=== PATIENT | female | born 1965 | race African-American/Black ===

== ENCOUNTER 2023-11-24 20:33 | Emergency (ER) | payer OTHER ==
[~2023-11-24] VITALS: Ht 165.1 cm; Wt 77.0 kg
[~2023-11-24 20:33] MED LIST: AMLO5TAB88 PO; ASPI-1160 PO; ATOR20TA PO; COR3 PO; FURO40TA5 MT; GUAI600T44 PO; HYDR50TA39 PO; INSU100I28 SQ
[2023-11-24 21:02] VITALS: O2SAT 99
[2023-11-24 21:24] LABS: BASOPHILS % 0.7 % (0.0-2.0); EOSINOPHILS % 1.5 % (0.0-5.0); HEMATOCRIT. 38.1 % (36.0-48.0); HEMOGLOBIN. 12.4 g/dL (12.0-16.0); LYMPHOCYTES % 41.3 % (20.0-50.0); MEAN CORPUSCULAR HEMOGLOBIN 27.3 pg (28.0-32.0); MEAN CORPUSCULAR HGB CONC 32.5 g/dL (31.0-37.0); MEAN CORPUSCULAR VOLUME 83.9 fL (81.0-99.0); MEAN PLATELET VOLUME 7.3 fl (7.4-10.4); MONOCYTES % 7.6 % (2.0-8.0); NEUTROPHILS % 48.9 % (40.0-76.0); PLATELET 427 x1000/uL (130-400); RED BLOOD CELL COUNT 4.54 mill/uL (4.2-5.4); RED CELL DISTRIBUTION WIDTH 15.7 % (11.6-14.6); WHITE BLOOD COUNT 5.6 x1000/uL (4.5-11.0)
[2023-11-24 21:43] LABS: CHLORIDE 112 mEq/L (98-107); POTASSIUM 3.4 mEq/L (3.5-5.1); SODIUM 144 mEq/L (136-145)
[2023-11-24 21:45] LABS: CARBON DIOXIDE 26 mEq/L (21-32)
[2023-11-24 21:46] LABS: CALCIUM 8.8 mg/dL (8.7-10.4)
[2023-11-24 21:50] LABS: CREATININE 1.3 mg/dL (0.6-1.0); GLUCOSE 117 mg/dL (70-105); TROPONIN I HIGH SENSITIVITY 18 ng/L (3.0-34)
[2023-11-24 21:51] LABS: UREA NITROGEN BLOOD 18 mg/dL (9-23)
[2023-11-24 21:52] LABS: ALANINE AMINOTRANSFERASE 33 IU/L (10-49); ALBUMIN 3.5 g/dL (3.2-4.8); ASPARTATE AMINOTRANSFERASE 42 IU/L (<34)
[2023-11-24 21:53] LABS: BILIRUBIN DIRECT 0.1 mg/dL (<=3.0); BILIRUBIN TOTAL 0.3 mg/dL (0.1-1.0); PROTEIN TOTAL 6.1 g/dL (6.0-8.3)
[2023-11-24 22:28] VITALS: BP 134/66; PULSE 99; RESP 18; TEMP 36.78072; O2SAT 99
== END 2023-11-24 22:10 | disposition home or self-care (01) ==
LOC: ER 20:33
DX: R60.0 Localized edema (principal); R07.9 Chest pain, unspecified; E11.9 Type 2 diabetes mellitus without complications; I11.0 Hypertensive heart disease with heart failure; I50.9 Heart failure, unspecified; Z90.710 Acquired absence of both cervix and uterus; Z79.899 Other long term (current) drug therapy
CPT/HCPCS: 36415; 71045; 80048; 80076; 84484; 85025; 93005; 99285